=== PATIENT | female | born 1960 | race Caucasian/White ===

== ENCOUNTER 2020-07-03 05:27 | Day surgery (SDC) | payer BC ==
[2020-06-28 14:26] LABS: CLARITY,URINE CLEAR (Clear); COLOR,URINE STRAW (Yellow); GLUCOSE, URINE NEGATIVE (Neg); KETONES,URINE NEGATIVE (Neg); LEUKOCYTE ESTERASE ,URINE NEGATIVE (Neg); NITRITES, URINE NEGATIVE (Neg); OCCULT BLOOD,URINE TRACE-INTACT (Neg); PROTEIN,URINE NEGATIVE (Neg); UROBILINOGEN,URINE 0.2 E.U/dL (0.2-1.0)
[2020-06-28 14:29] LABS: BASOPHILS # (AUTO) 0.1 X10'3 (0-0.2); EOSINOPHILS # (AUTO) 0.2 X10'3 (0-0.9); EOSINOPHILS % (AUTO) 2.3 % (0-6); LYMPHOCYTES # (AUTO) 1.3 X10'3 (1.1-4.8); LYMPHOCYTES % (AUTO) 16.4 % (21-51); MEAN CORPUSCULAR HEMOGLOBIN 30.3 PG (27.0-31.0); MEAN CORPUSCULAR HGB CONC 32.8 g/dL (33.0-36.5); MEAN CORPUSCULAR VOLUME 92.4 FL (78-98); MEAN PLATELET VOLUME 7.8 FL (7.4-10.4); MONOCYTES # (AUTO) 0.6 X10'3 (0-0.9); MONOCYTES % (AUTO) 7.8 % (2-12); NEUTROPHILS # (AUTO) 5.7 X10'3 (1.8-7.7); NEUTROPHILS % (AUTO) 72.5 % (42-75); PRE OP HEMATOCRIT 35.1 % (35.0-45.0); PRE OP HEMOGLOBIN 11.5 g/dL (12.0-16.0); PRE OP PLATELET COUNT 299 X10'3 (140-440)
[2020-06-28 14:31] LABS: UA COLLECTION TYPE CLN CATCH MIDSTREAM
[2020-06-28 14:32] LABS: BACTERIA,URINE 1+ /HPF (Neg); MUCUS STRANDS FEW /LPF (Neg); RBC,URINE 0-2 /HPF (0-2); SQUAMOUS EPITHELIAL CELL,UR MODERATE /LPF (FEW); WBC,URINE NONE SEEN /HPF (0-4)
[2020-06-28 14:38] LABS: ALBUMIN 3.7 G/DL (3.4-5.0); ALBUMIN/GLOBULIN RATIO 1.1 (1.1-1.5); ALKALINE PHOSPHATASE 95 IU/L (46-116); BLOOD UREA NITROGEN 17 MG/DL (7-18); BUN/CREATININE RATIO 13.9 (6.6-38.0); CALCIUM 8.7 MG/DL (8.5-10.1); CHLORIDE 104 MMOL/L (99-107); CREATININE 1.22 MG/DL (0.40-0.90); PRE OP ALT 44 U/L (30-65); PRE OP ANION GAP 9 (8-16); PRE OP AST 27 U/L (10-37); PRE OP BILIRUB, TOTAL 0.4 MG/DL (0.0-1.0); PRE OP GLUCOSE 100 MG/DL (70-104); PRE OP POTASSIUM 3.7 MMOL/L (3.4-5.1); PRE OP SODIUM 142 MMOL/L (135-145); TOTAL PROTEIN 7.2 G/DL (6.4-8.2); eGFR 45 ML/MIN
[~2020-07-03] VITALS: Ht 167.6 cm; Wt 110.4 kg
[2020-07-03] VITALS (8 sets, daily range): BP systolic 120–168; BP diastolic 59–75
[~2020-07-03 05:27] MED LIST: ATOR10TA70 PO; BUDE10.2 INH; CALC-642 PO; IBUP-1984 PO; LEVO100T PO; OMEP20CA4 PO; OXYB5TAB16 PO; ringers solution, lacted 1,000 ML IV SCH
[2020-07-03] MEDS ORDERED: ceFAZolin 2gm in dextrose, iso 50 ML IV ONE (05:30)
[2020-07-03] MEDS ORDERED: famotidine 20mg tablet PO ONE (05:30)
[2020-07-03] MEDS ORDERED: LIDOcaine 1% (10mg/ml) 2ml vial ONE (06:03)
[2020-07-03] MEDS ORDERED: BUPIVAcaine/PF 2.5 mg/ml (0.25%) 30ml vial ONE (06:49)
[2020-07-03] MEDS ORDERED: scopolamine 1.5mg patch.TD72 TD ONE (12:17)
[2020-07-03] MEDS ORDERED: fentaNYL /PF 50mcg/ml 5ml ampule ONE (12:53)
[2020-07-03] MEDS ORDERED: dexamethasone sod phosphate 10mg/ml inj ONE (12:53)
[2020-07-03] MEDS ORDERED: sevoflurane 250ml liquid IH ONE (12:53)
[2020-07-03] MEDS ORDERED: neostigmine methylsulfate 1 MG/ML 10ml vial ONE (12:53)
[2020-07-03] MEDS ORDERED: propofol inj 20 ML IV ONE (12:55)
[2020-07-03] MEDS ORDERED: LIDOcaine 2% (20mg/ml) 5ml vial ONE (12:55)
[2020-07-03] MEDS ORDERED: ondansetron/PF 4mg/2ml inj ONE (12:55)
[2020-07-03] MEDS ORDERED: labetalol 20mg/4ml (5mg/ml) syringe IV ONE (13:11)
[2020-07-03] MEDS ORDERED: rocuronium 10mg/ml inj IV ONE (13:12)
[2020-07-03] MEDS ORDERED: ringers solution, lacted 1,000 ML IV SCH (13:19)
[2020-07-03] MEDS ORDERED: proMETHazine 25mg rectal suppository RC PRN ×2 (13:20)
[2020-07-03] MEDS ORDERED: morphine 4 MG/ML inj SYRINge IV PRN (13:20)
[2020-07-03] MEDS ORDERED: hydrALAZINE 20mg/ml inj. IV PRN (13:20)
[2020-07-03] MEDS ORDERED: fentaNYL/PF 50MCG/1 ML 2ML syringe IV PRN ×2 (13:20)
[2020-07-03] MEDS ORDERED: proCHLORperazine 10 MG/2 ml inj IV PRN (13:20)
[2020-07-03] MEDS ORDERED: labetalol 20mg/4ml (5mg/ml) syringe IV PRN (13:20)
[2020-07-03] MEDS ORDERED: ondansetron/PF 4mg/2ml inj IV PRN (13:20)
[2020-07-03] MEDS ORDERED: morphine 2 MG/ML inj. syringe IV PRN (13:20)
[2020-07-03] MEDS ORDERED: glycopyrrolate 0.2mg/ml inj ONE (13:53)
--- NOTE | 2020-07-03 14:07 | NUR ---
Received from OR via [facility] , accompanied by Anesthesiologist PAVEL and report given by Anesthesiolgist. PATIENT WITH 20G PIV IN LEFT UE RUNNING LR AT 100. MEDICATED FOR NAUSEA, 2 LAP SITES PRESENT TO ABDOMEN WITH NO NAUSEA. 10L MASK ON WITH 95% SATURATIONS.
--- NOTE | 2020-07-03 15:16 | NUR ---
PATIENT HAS MET ALL DC CRITERIA FOR DC HOME. I HAVE REVIEWED D/C INSTRUCTIONS WITH PATIENT AND FAMILY AND THEY HAVE VERBALIZED UNDERSTANDING, OPPORTUNITY TO ASK QUESTIONS GIVEN AND PATIENT COMFORTABLE WITH DC. IV TAKEN OUT WITHOUT COMPLICATION. OUT VIA WHEELCHAIR WHERE PATIENT WAS TAKEN HOME WITH ALL BELONGINGS. FAMILY GAVE PATIENT TRANSPORT HOME. DAUGHTER DROVE PATIENT HOME. PATIENT VSS. Addendum: 07/03/20 at 1552 by Adolfo Pelletier RN, RN Amended: Links added.
== END 2020-07-03 15:16 | disposition home or self-care (01) ==
LOC: PAS 05:27
PROVIDERS: ATTEND Surgery
PROC: 0DNU4ZZ Release Omentum, Percutaneous Endoscopic Approach (ICD-10-PCS; principal; 2020-07-03 12:53)
DX: K66.0 Peritoneal adhesions (postprocedural) (postinfection) (principal); R10.2 Pelvic and perineal pain; Z87.891 Personal history of nicotine dependence; G47.33 Obstructive sleep apnea (adult) (pediatric); E66.09 Other obesity due to excess calories; Z68.33 Body mass index [BMI] 33.0-33.9, adult; E03.9 Hypothyroidism, unspecified
CPT/HCPCS: 36415; 44180; 80053; 81001; 82948; 85025; 93005; J0780; J1100; J2001; J2405; J2704; J2710; J3010; J3490; A4215; A4618; A7000; J7120